=== PATIENT | male | born 1950 | race Caucasian/White ===

== ENCOUNTER 2020-08-06 16:17 | Emergency (ER) | payer MEDICARE ==
[~2020-08-06] VITALS: Ht 182.9 cm; Wt 118.0 kg
[~2020-08-06 16:17] MED LIST: epiNEPHrine 0.1mg/ml 10ml syringe ONE
--- NOTE | 2020-08-06 16:35 | NUR ---
SHIRA Pinto at bedside upon EMS arrival. EMS gave a total of 5 rounds of epi, since initiation of CPR at 1530. Pt in PEA, other than a brief episode of pulse return just prior to transporting pt. Bedside cardiac US performed, to show no cardiac activity. JOCY called at 1624.
--- NOTE | 2020-08-06 16:36 | NUR ---
Upon further report from EMS, pt was complaining of abdominal pain following yard work at roughly 1400 today. Pt lied down for nap, and was found by family at roughly 1515, unresponsive. CPR inititated by fire at approx 1520. Pt initially asystole, converting to PEA at <40 bpm. At approx 1555, the pt regained pulse for short time. Pulseless again at 1608. Total of 5 rounds epinephrine administered prior to arrival to ED.
--- NOTE | 2020-08-06 19:38 | NUR ---
[facility] STAFF HERE TO IDENTITY MANAGEMENT DEVELOPER REMAINIS. EXPIRATION MEMORANDUM UPDATED TO REFLECT THAT DR. BURGOS TALKED WITH THE FAMMILY AT BEDSIDE AND WE HAVE NOT SPECIFIC CONTACT PHONE NUMBER FOR THE FAMILY PER REGISTRATION. ALSO, THIS IS NOT A CORONERS CASE BASED ON A NOTED ON THE EXPIR. RAFAEL. PT WITH NO VALUABLES ONLY PANTS AND SOCKS. CLINICAL PRODUCT MANAGER, AQUILINO, ROXANNATED OF CLARIFICATIONS MADE TO THE EPIRATION MEMORANDUM FILLED OUT BY DAY SHIFT RN, POSSIBLY SARY NICHOLS.
== END 2020-08-06 19:57 | disposition expired ==
LOC: ER 16:18
DX: I46.9 Cardiac arrest, cause unspecified (principal); R10.84 Generalized abdominal pain
CPT/HCPCS: 99283; J0171; 96372; 99284